=== PATIENT | male | born 1985 | race Caucasian/White ===

== ENCOUNTER 2020-07-09 08:30 | Outpatient (CLI) | payer BC ==
--- NOTE | 2020-07-09 09:24 | RAD ---
CERVICAL SPINE 3 VIEWS: HISTORY: Cervical pain. FINDINGS: There is straightening of the lordotic curvature. The cervical vertebrae maintain normal height and alignment. The disk spaces are preserved. No acute abnormality. IMPRESSION: Straightening of the lordotic curvature may represent muscle spasm. Cervical spine otherwise unremar kable. POS: [id number]
== END 2020-07-09 08:31 | disposition home or self-care (01) ==
LOC: RAD-FRANK 08:30
PROVIDERS: ATTEND Nurse Practitioner Family
DX: S16.1XXD Strain of muscle, fascia and tendon at neck level, subsequent encounter (principal)
CPT/HCPCS: 72040

== ENCOUNTER 2021-06-16 08:02 | Outpatient (CLI) | payer BC | END 2021-06-16 08:03 | disposition home or self-care (01) | LOC: RAD-FRANK 08:02 | PROVIDERS: ATTEND Nurse Practitioner Family | DX: R07.89 Other chest pain (principal) | CPT/HCPCS: 71046 ==

== ENCOUNTER 2021-08-05 12:27 | Emergency (ER) | payer BC, SELFPAY ==
[2021-08-05] MEDS ORDERED: Ketorolac Tromethamine 30 MG/ML VIAL ONE (12:57)
[2021-08-05] MEDS ORDERED: Morphine 4 MG/ML VIAL ONE (12:57)
[2021-08-05 13:01] LABS: #Lymphocytes 1.4 thou/uL (1.20-3.40); #Monocytes 0.4 thou/uL (0.11-0.59); %Basophils 0.5 % (0.0-1.0); %Eosinophils 0.8 % (0.0-10.0); %Lymphocytes 23.9 % (21.0-51.0); %Neutrophils 68.7 % (42.0-75.0); Hemoglobin 15.1 g/dL (14.0-18.0); Mean Corpuscular HGB CONC 33.3 g/dL (32.0-36.0); Mean Corpuscular Hemoglobin 29.1 pg (27.0-31.0); Mean Corpuscular Volume 87.2 fL (78.0-98.0); Mean Platelet Volume 7.4 fL (7.4-10.4); Platelet Count 233 thou/uL (130-400); RBC Distribution Width 12.1 % (11.5-14.5); Red Blood Cell (RBC) Count 5.19 mill/uL (4.70-6.10); White Blood Cell (WBC) Count 5.8 thou/uL (4.8-10.8)
[2021-08-05] MEDS ORDERED: Aspirin Chewable 81 MG TAB ONE (13:03)
[2021-08-05] MEDS ORDERED: Ondansetron PF 4 MG/2 ML Vial ONE (13:03)
[2021-08-05 13:28] LABS: ALT (SGPT) 42 U/L (8-55); AST (SGOT) 24 U/L (5-34); Alkaline Phosphatase 41 U/L (40-110); Anion Gap 16 mmol/L (10-20); BUN (Urea Nitrogen) 13 mg/dL (8.9-20.6); Bilirubin, Total 0.6 mg/dL (0.2-1.2); Calc. Creatinine Clearance 0 mL/min (70-130); Calcium 10.1 mg/dL (7.8-10.44); Carbon Dioxide 26 mmol/L (22-29); Chloride 102 mmol/L (98-107); Globulin 2.9 g/dL (2.4-3.5); Glucose 98 mg/dL (70-105); Lipase 15 U/L (8-78); Potassium 3.9 mmol/L (3.5-5.1); Protein, Total 7.9 g/dL (6.0-8.3); Sodium 140 mmol/L (136-145)
[2021-08-05] MEDS ORDERED: Morphine 4 MG/ML VIAL SLOW IVP SCH (13:30)
== END 2021-08-05 14:11 | disposition home or self-care (01) ==
LOC: ERS 12:27
DX: R07.89 Other chest pain (principal); I10 Essential (primary) hypertension; E78.5 Hyperlipidemia, unspecified
CPT/HCPCS: 71045; 80053; 83690; 84484; 85025; 93005; 96374; 96375; J1885; J2270; J2405

== ENCOUNTER 2021-11-10 13:44 | Outpatient (CLI) | payer BC, OTHER | END 2021-11-10 13:45 | disposition home or self-care (01) | LOC: RAD 13:44 | PROVIDERS: ATTEND Internal Medicine Critical Care Medicine | DX: R06.00 Dyspnea, unspecified (principal) | CPT/HCPCS: 71046 ==

== ENCOUNTER → 2021-11-25 | Day surgery (SDC) | payer OTHER ==
[~2021-11-25] MED LIST: Cosyntropin 250 MCG VIAL SLOW IVP SCH
[2021-11-25 09:27] VITALS: BP 130/78; TEMP 98.4
== END | disposition home or self-care (01) ==
LOC: ONC/OP 08:02
PROVIDERS: ATTEND Internal Medicine Critical Care Medicine
DX: E27.1 Primary adrenocortical insufficiency (principal)
CPT/HCPCS: 36415; 80400; 82024; 96374; J0834